=== PATIENT | female | born 1970 | race Caucasian/White ===

== ENCOUNTER 2017-05-27 06:25 | Emergency (ER) | payer OTHER ==
[~2017-05-27] VITALS: Ht 170.2 cm; Wt 143.3 kg
[~2017-05-27 06:25] MED LIST: CARB200T PO; LORA1TAB82 PO
--- NOTE | 2017-05-27 06:34 | NUR ---
PT REFUSED BP CHECK. RISK AND BENEFITS EXPLAINED X 3. PT STRONGLY REFUSED AND REMOVED BP CUFF.
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
--- NOTE | 2017-05-27 06:44 | NUR ---
DR. SANTOS AT BEDSIDE FOR EVAL.
[2017-05-27] MEDS ORDERED: LORAZEPAM 1 MG TABLET ONE (06:48)
--- NOTE | 2017-05-27 06:54 | NUR ---
LAB AT BEDSIDE FOR BLOOD DRAW
[2017-05-27] MEDS ORDERED: LORAZEPAM 1 MG TABLET PO ONE (07:00)
[2017-05-27 07:53] LABS: CALCIUM, SERUM 9.2 mg/dL (8.5-10.1); POTASSIUM 4.2 mmol/L (3.5-5.1)
[2017-05-27 08:12] VITALS: BP 126/70
== END 2017-05-27 08:15 | disposition home or self-care (01) ==
LOC: ER 06:26
DX: G40.409 Other generalized epilepsy and epileptic syndromes, not intractable, without status epilepticus (principal); F41.9 Anxiety disorder, unspecified; Z88.0 Allergy status to penicillin; Z98.84 Bariatric surgery status
CPT/HCPCS: 36415; 80048; 93005; 99285; A4606 ×2; Z7610 ×2

== ENCOUNTER 2017-05-28 20:30 | Emergency (ER) | payer OTHER ==
[~2017-05-28] VITALS: Ht 170.2 cm; Wt 95.3 kg
[2017-05-28 20:35] VITALS: BP 130/79
--- NOTE | 2017-05-28 21:08 | NUR ---
DR. YESENIA COWAN.
[2017-05-28] MEDS ORDERED: LEVETIRACETAM (500MG) 500 MG in IV NS 0.9% 100 ML IV SCH (22:00)
[2017-05-28] MEDS ORDERED: LEVETIRACETAM (500MG) 500 MG/5 ML VIAL IV ONE (22:04)
--- NOTE | 2017-05-28 22:11 | NUR ---
PT REFUSING SALIN LOCK AND REQUESTING TO SPEAK TO MAGY TAI.
[2017-05-28] MEDS ORDERED: LEVETIRACETAM (250 MG) 250 MG TABLET PO ONE ×2 (22:22→22:30)
== END 2017-05-28 22:33 | disposition home or self-care (01) ==
LOC: ER 20:32
DX: G40.909 Epilepsy, unspecified, not intractable, without status epilepticus (principal); F41.9 Anxiety disorder, unspecified; Z88.0 Allergy status to penicillin; Z98.84 Bariatric surgery status
CPT/HCPCS: 96365; 99284; A4606; J1953 ×2; J7030 ×2; Z7610

== ENCOUNTER 2017-12-14 16:27 | Emergency (ER) | payer OTHER ==
[~2017-12-14] VITALS: Ht 167.6 cm; Wt 131.5 kg
[~2017-12-14 16:27] MED LIST changes: +LORA-259 PO; -LORA1TAB82 PO
--- NOTE | 2017-12-14 16:30 | NUR ---
PATIENT REFUSED TO SIGN DISCHARGE PAPERS
--- NOTE | 2017-12-14 17:00 | NUR ---
MD STARR AT BEDSIDE.
== END 2017-12-14 17:10 | disposition home or self-care (01) ==
LOC: ER 16:31
DX: F19.239 Other psychoactive substance dependence with withdrawal, unspecified (principal); G40.909 Epilepsy, unspecified, not intractable, without status epilepticus; F41.9 Anxiety disorder, unspecified; Z88.0 Allergy status to penicillin; Z60.2 Problems related to living alone
CPT/HCPCS: Z7502; Z7610

== ENCOUNTER 2018-07-13 11:33 | Emergency (ER) | payer OTHER ==
[~2018-07-13] VITALS: Ht 167.6 cm; Wt 120.2 kg
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
[2018-07-13] MEDS ORDERED: OLANZAPINE 10 MG VIAL IM ONE ×2 (12:00→12:01)
--- NOTE | 2018-07-13 12:05 | NUR ---
IV LINE STARTED BLOOD DRAWN AND SENT TO LAB.
--- NOTE | 2018-07-13 12:06 | NUR ---
SKIN IS INTACT, CMS WNL
--- NOTE | 2018-07-13 12:13 | NUR ---
ERMD AT BEDSIDE FOR EVAL.
[2018-07-13 12:22] LABS: BASOPHILS # (AUTO) 0.1 /CMM (0.0-0.2); BASOPHILS % (AUTO) 0.7 % (0.0-2.0); EOSINOPHILS % (AUTO) 0.2 % (0.0-6.0); HEMATOCRIT 45 % (33-45); LYMPHOCYTES # (AUTO) 5.1 /CMM (0.8-4.8); LYMPHOCYTES % (AUTO) 30.5 % (20.0-44.0); MEAN CORPUSCULAR HGB CONC 32 g/dl (31.0-36.0); MEAN CORPUSCULAR VOLUME 94 fL (82-100); MONOCYTES % (AUTO) 5.9 % (2.0-12.0); NEUTROPHILS # (AUTO) 10.5 /CMM (1.8-8.9); NEUTROPHILS % (AUTO) 62.7 % (43.0-81.0); PLATELET COUNT (AUTO) 463 /CMM (150-450); RED BLOOD CELL COUNT(AUTO) 4.75 MIL/uL (4.0-5.2); WHITE BLOOD COUNT (AUTO) 16.7 K/uL (4.3-11.0)
--- NOTE | 2018-07-13 12:22 | NUR ---
SKIN IS INTACT, CMS WNL, PT CALM, STILL STATES "I AM GOING TO ". RESTRAINTS AT BILATERAL LOWER EXTREMITY REMOVED.
[2018-07-13 12:27] LABS: POTASSIUM 3.2 mmol/L (3.5-5.1)
[2018-07-13] MEDS ORDERED: IV NS 0.9% 1,000 ML BAG IV ONE ×2 (12:30→13:00)
[2018-07-13 12:33] LABS: ALBUMIN 3.9 g/dL (3.4-5.0); ALCOHOL, BLOOD < 3 mg/dL (0-0); ALKALINE PHOSPHATASE 97 U/L (46-116); ASPARTATE AMINOTRANSFERASE 24 U/L (15-37); BILIRUBIN,DIRECT 0.1 mg/dL (0.0-0.2); BILIRUBIN,TOTAL 0.6 mg/dL (0.2-1.0); CALCIUM, SERUM 9.1 mg/dL (8.5-10.1); CHLORIDE 99 mmol/L (98-107); CREATININE 1.7 mg/dL (0.6-1.3); GLUCOSE 296 mg/dL (74-106); SALICYLATE 5.4 mg/dL (2.8-20.0); SODIUM SERUM 138 mmol/L (136-145); UREA NITROGEN, BLOOD 16 mg/dL (7-18)
[2018-07-13 12:34] LABS: ACETAMINOPHEN 0 ug/ml (10-30); CARBON DIOXIDE 10 mmol/L (21-32)
--- NOTE | 2018-07-13 12:39 | NUR ---
SKIN IS INTACT, CMS WNL, PT CALM AND COOPERATIVE. R ARM RESTRAINT REMOVED.
[2018-07-13 12:40] LABS: ALANINE AMINOTRANSFERASE 39 U/L (12-78)
--- NOTE | 2018-07-13 12:43 | NUR ---
RADIOLOGY AT BEDSIDE FOR CHEST XRAY.
[2018-07-13 12:59] LABS: BILIRUBIN,URINE Negative (NEGATIVE); BLOOD, URINE Moderate Ery/uL (NEGATIVE); COLOR,URINE Yellow (YELLOW); KETONES,URINE Negative (NEGATIVE); LEUKOCYTE ESTERASE ,URINE Negative (NEGATIVE); NITRITE, URINE Negative (NEGATIVE); PH,URINE 5.5 (5.0-8.0); PROTEIN,URINE >=300 mg/dl (NEGATIVE); UGLUCOSE 500 MG/DL mg/dL (NEGATIVE); UROBILINOGEN,URINE 0.2 EU/dL (0.2)
[2018-07-13 13:04] LABS: BACTERIA,URINE Few /HPF (None Seen); SQUAMOUS EPITHELIAL CELL,UR Few /HPF (None Seen); URINE AMORPHOUS URATE Rare /HPF (None Seen)
[2018-07-13 13:15] LABS: ABG BASE EXCESS -4.1 mmol/L; ABG OXYGEN SATURATION 96.2 % (92.0-98.5); ABG PCO2 24.4 mmHg (35.0-45.0); ABG PH 7.477 (7.350-7.450); ABG PO2 84.3 mmHg (75.0-100.0); AaDO2 36.2 mmHg; COHb 0.9 % (0.5-1.5); MetHb 0.5 % (0.0-1.5); O2Hb 94.9 % (94.0-97.0); SITE, ABG Right Radial; VENT MODE, BG room air
[2018-07-13] MEDS ORDERED: POTASSIUM CHLORIDE 20 MEQ TAB.PRT.SR PO ONE ×2 (13:34→14:00)
--- NOTE | 2018-07-13 13:45 | NUR ---
PT IS CALM, VERBALLY RESPONSIVE. STABLE VITALS. WILL CONTINUE TO MONITOR.
[2018-07-13 13:56] LABS: CALCIUM, SERUM 8.7 mg/dL (8.5-10.1); CREATININE 1.2 mg/dL (0.6-1.3); POTASSIUM 3.5 mmol/L (3.5-5.1)
--- NOTE | 2018-07-13 14:15 | NUR ---
PT TO RADIOLOGY FOR HEAD [facility].
--- NOTE | 2018-07-13 14:20 | NUR ---
OUT FOR CT
[2018-07-13] MEDS ORDERED: LEVE500T9 PO (14:21)
--- NOTE | 2018-07-13 15:10 | NUR ---
PATIENT CALM AND COOPERATIVE. WILL CONTINUE TO MONITOR
--- NOTE | 2018-07-13 16:30 | NUR ---
PT RESTING COMFORTABLY IN BED
--- NOTE | 2018-07-13 17:30 | NUR ---
PT RESTING COMFORTABLY IN BED, CALM AND COOPERATIVE
--- NOTE | 2018-07-13 19:13 | NUR ---
Received pt from [facility]. Pt resting in bed, calm and in no apparent distress at this time. Will continue to monitor.
--- NOTE | 2018-07-13 19:13 | NUR ---
REPORT GIVEN TO SALONI MOBLEY FOR MAX
--- NOTE | 2018-07-13 20:30 | NUR ---
Pt sleeping comfortably, arousable; no new complaint. Kept warm.
--- NOTE | 2018-07-13 20:45 | NUR ---
Pt seen by Crisis Team for psych eval. Pt is cooperative.
--- NOTE | 2018-07-13 21:15 | NUR ---
Nolasco Catheter removed per patient's request.
--- NOTE | 2018-07-13 22:20 | NUR ---
Pt cleared for DC Home.IV removed. Catheter intact and site benign. Pressure and 4x4 applied to site. No bleeding noted. Assisted pt to waiting area for her ride to pick her up. ambulatory with a steady gait
[2018-07-13 22:23] VITALS: BP 111/65
== END 2018-07-13 22:28 | disposition home or self-care (01) ==
LOC: ER 11:35
DX: R45.1 Restlessness and agitation (principal); R06.00 Dyspnea, unspecified; S80.211A Abrasion, right knee, initial encounter; G40.909 Epilepsy, unspecified, not intractable, without status epilepticus; F41.9 Anxiety disorder, unspecified; Z88.0 Allergy status to penicillin; Z60.2 Problems related to living alone; Z79.899 Other long term (current) drug therapy; X58.XXXA Exposure to other specified factors, initial encounter; Y93.89 Activity, other specified; Y92.89 Other specified places as the place of occurrence of the external cause; Y99.8 Other external cause status
CPT/HCPCS: 36415; 36600; 70450-TC; 71045-TC; 80048-TC; 80076-TC; 80305; 81000-TC; 83880; 84702-TC; 84703-TC; 85025-TC; G0480; J3490; J7030

== ENCOUNTER 2018-07-14 22:02 | Emergency (ER) | payer OTHER ==
[~2018-07-14 22:02] MED LIST changes: +LEVE500T9 PO
--- NOTE | 2018-07-14 23:08 | NUR ---
CALLED PT'S NAME THREE TIMES, NO RESPONSE. PT LEFT WITHOUT BEING TRIAGED
== END 2018-07-14 23:09 | disposition left against medical advice (07) ==
LOC: ER 22:05
DX: Z53.21 Procedure and treatment not carried out due to patient leaving prior to being seen by health care provider (principal)

== ENCOUNTER 2019-03-19 23:59 | Emergency (ER) | payer OTHER ==
[~2019-03-19] VITALS: Ht 170.2 cm; Wt 113.4 kg
[~2019-03-19 23:59] MED LIST changes: -CARB200T PO
--- NOTE | 2019-03-20 00:10 | NUR ---
TO BED 4 BIB EMS C/O ANXIETY. DENIES SI/HI. PT AAOX4 NO ACUTE DISTRESS NOTED, RESP EVEN AND UNLABORED. PENDING ER MD MARTINEZ.
--- NOTE | 2019-03-20 01:07 | NUR ---
MAGY TAI AT BEDSIDE TO [facility] GIL[facility]ERT.
[2019-03-20] MEDS ORDERED: LORAZEPAM 1 MG TABLET ONE (01:16)
--- NOTE | 2019-03-20 01:22 | NUR ---
Patient discharged to home in stable condition. Written and verbal after care instructions given. Patient verbalizes understanding of instruction. ambulatory with a steady gait noted. advice pt not to drive or operate any machinery due to pt was given ativan. pt verbalize understanding.
[2019-03-20 01:23] VITALS: BP 134/86
[2019-03-20] MEDS ORDERED: LORAZEPAM 1 MG TABLET PO ONE (01:30)
== END 2019-03-20 01:25 | disposition home or self-care (01) ==
LOC: ER 03-20
DX: F41.0 Panic disorder [episodic paroxysmal anxiety] (principal); G40.909 Epilepsy, unspecified, not intractable, without status epilepticus; Z88.0 Allergy status to penicillin; Z60.2 Problems related to living alone; Z79.899 Other long term (current) drug therapy

== ENCOUNTER 2019-08-11 12:47 | Emergency (ER) | payer OTHER ==
[~2019-08-11] VITALS: Ht 170.2 cm; Wt 115.7 kg
--- NOTE | 2019-08-11 12:50 | NUR ---
BIB RA 878 FROM HOME,HIGH ANXIETY AND TRYING TO INDUCE VOMITING THINKING IT WOULD REMOVE THE KEPPRA SHE TOOK LAST NIGHT AND THIS MORNING. PATIENT A/OX4, ANXIOUS AND FOUND PATIENT TRYING TO FORCE HERSELF TO VOMIT BY PUTTING A PEN DOWN HER THROAT. INSTRUCTED PATIENT TO STOP AND TO SIT AT THE BED FOR SAFETY. PATIENT IS NON-COMPLIANT.
[2019-08-11] MEDS ORDERED: LORAZEPAM INJ 2 MG/ML VIAL ONE (12:57)
[2019-08-11] MEDS ORDERED: HALOPERIDOL LACTATE INJ 5 MG/ML VIAL ONE (12:57)
[2019-08-11] MEDS ORDERED: LORAZEPAM INJ 2 MG/ML VIAL IM ONE (13:00)
[2019-08-11] MEDS ORDERED: HALOPERIDOL LACTATE INJ 5 MG/ML VIAL IM ONE (13:00)
--- NOTE | 2019-08-11 13:32 | NUR ---
patient awake, alert and oriented x4, ambulatory with steady gait, dog at bedside, wants to go home, informed dr. morris.
[2019-08-11 13:37] VITALS: BP 124/69
--- NOTE | 2019-08-11 13:37 | NUR ---
Patient discharged to home in stable condition. Written and verbal after care instructions given. Patient verbalizes understanding of instruction. Instructed not to drive.
== END 2019-08-11 13:38 | disposition home or self-care (01) ==
LOC: ER 12:48
DX: T42.6X1A Poisoning by other antiepileptic and sedative-hypnotic drugs, accidental (unintentional), initial encounter (principal); F41.0 Panic disorder [episodic paroxysmal anxiety]; G40.909 Epilepsy, unspecified, not intractable, without status epilepticus; F12.10 Cannabis abuse, uncomplicated; R45.1 Restlessness and agitation; Z88.0 Allergy status to penicillin; Z60.2 Problems related to living alone; Z79.899 Other long term (current) drug therapy; Y92.89 Other specified places as the place of occurrence of the external cause
CPT/HCPCS: 96372 ×2; 99284; J1630; J2060

== ENCOUNTER 2019-10-18 08:58 | Emergency (ER) | payer OTHER ==
[~2019-10-18] VITALS: Ht 167.6 cm; Wt 127.5 kg
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
[2019-10-18] MEDS ORDERED: LEVETIRACETAM (250 MG) 250 MG TABLET PO ONE ×2 (09:19→09:30)
--- NOTE | 2019-10-18 09:25 | NUR ---
egg sorter at bedside.
[2019-10-18 09:32] LABS: BASOPHILS # (AUTO) 0.1 /CMM (0.0-0.2); BASOPHILS % (AUTO) 0.5 % (0.0-2.0); EOSINOPHILS % (AUTO) 0.5 % (0.0-6.0); HEMATOCRIT 42 % (33-45); LYMPHOCYTES # (AUTO) 1.1 /CMM (0.8-4.8); LYMPHOCYTES % (AUTO) 9.6 % (20.0-44.0); MEAN CORPUSCULAR HGB CONC 33 g/dl (31.0-36.0); MEAN CORPUSCULAR VOLUME 88 fL (82-100); MONOCYTES # (AUTO) 0.4 /CMM (0.1-1.30); MONOCYTES % (AUTO) 3.7 % (2.0-12.0); NEUTROPHILS # (AUTO) 9.5 /CMM (1.8-8.9); NEUTROPHILS % (AUTO) 85.7 % (43.0-81.0); PLATELET COUNT (AUTO) 389 /CMM (150-450); RED BLOOD CELL COUNT(AUTO) 4.76 MIL/uL (4.0-5.2); WHITE BLOOD COUNT (AUTO) 11.1 K/uL (4.3-11.0)
[2019-10-18 09:39] LABS: CALCIUM, SERUM 8.9 mg/dL (8.5-10.1); CARBON DIOXIDE 29 mmol/L (21-32); CHLORIDE 104 mmol/L (98-107); GLUCOSE 100 mg/dL (74-106); SODIUM SERUM 139 mmol/L (136-145); UREA NITROGEN, BLOOD 16 mg/dL (7-18)
[2019-10-18 09:44] LABS: ALANINE AMINOTRANSFERASE 21 U/L (12-78); ALBUMIN 3.4 g/dL (3.4-5.0); ALKALINE PHOSPHATASE 90 U/L (46-116); ASPARTATE AMINOTRANSFERASE 14 U/L (15-37); BILIRUBIN,DIRECT 0.1 mg/dL (0.0-0.2); BILIRUBIN,TOTAL 0.3 mg/dL (0.2-1.0); TOTAL PROTEIN, SERUM 7.2 g/dL (6.4-8.2)
[2019-10-18 09:45] LABS: ALCOHOL, BLOOD < 3 mg/dL (0-0)
[2019-10-18 09:54] LABS: APPEARANCE,URINE Clear (CLEAR); BILIRUBIN,URINE Negative (NEGATIVE); BLOOD, URINE Large Ery/uL (NEGATIVE); COLOR,URINE Yellow (YELLOW); KETONES,URINE Negative (NEGATIVE); LEUKOCYTE ESTERASE ,URINE Small (NEGATIVE); NITRITE, URINE Negative (NEGATIVE); PROTEIN,URINE 30 mg/dl (NEGATIVE); UGLUCOSE Negative (NEGATIVE); UROBILINOGEN,URINE 0.2 EU/dL (0.2)
[2019-10-18 09:55] LABS: BACTERIA,URINE Few /HPF (None Seen); RBC,URINE 21-50 /HPF (0-2); SQUAMOUS EPITHELIAL CELL,UR Few /HPF (None Seen)
--- NOTE | 2019-10-18 10:16 | NUR ---
AMBULATORY WITH STEADY GAIT. NO DISTRESS NOTED. Patient discharged to home in stable condition. Written and verbal after care instructions given. Patient verbalizes understanding of instruction.
[2019-10-18 10:17] VITALS: BP 128/72
== END 2019-10-18 10:20 | disposition home or self-care (01) ==
LOC: ER 09:01
DX: G40.909 Epilepsy, unspecified, not intractable, without status epilepticus (principal); Z88.0 Allergy status to penicillin; Z60.2 Problems related to living alone; Z79.899 Other long term (current) drug therapy
CPT/HCPCS: 36415; 80048-TC; 80076-TC; 80305; 81000-TC; 85025-TC; 87086-TC; G0480

== ENCOUNTER 2021-05-07 23:27 | Emergency (ER) | payer OTHER ==
[~2021-05-07] VITALS: Ht 170.2 cm; Wt 108.9 kg
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
[2021-05-07] MEDS ORDERED: LEVETIRACETAM (500MG) 500 MG/5 ML VIAL IV ONE (23:58)
[2021-05-07] MEDS ORDERED: LORAZEPAM INJ 2 MG/ML VIAL ONE (23:59)
[2021-05-08] MEDS ORDERED: LORAZEPAM INJ 2 MG/ML VIAL IVP ONE
[2021-05-08] MEDS ORDERED: LEVETIRACETAM (500MG) 500 MG in IV NS 0.9% 100 ML IV ONE
--- NOTE | 2021-05-08 00:01 | NUR ---
RESTING COMFORTABLY. VSS.
[2021-05-08 00:06] LABS: BASOPHILS # (AUTO) 0.1 K/uL (0.0-0.2); BASOPHILS % (AUTO) 0.5 % (0.0-2.0); HEMATOCRIT 41 % (33-45); HEMOGLOBIN 13.7 g/dL (11.5-14.8); LYMPHOCYTES # (AUTO) 2.4 K/uL (0.8-4.8); LYMPHOCYTES % (AUTO) 22.6 % (20.0-44.0); MEAN CORPUSCULAR HGB CONC 33 g/dl (31.0-36.0); MEAN CORPUSCULAR VOLUME 90 fL (82-100); MONOCYTES # (AUTO) 0.5 K/uL (0.1-1.30); NEUTROPHILS # (AUTO) 7.5 K/uL (1.8-8.9); NEUTROPHILS % (AUTO) 69.9 % (43.0-81.0); PLATELET COUNT (AUTO) 373 K/uL (150-450); RED BLOOD CELL COUNT(AUTO) 4.61 MIL/uL (4.0-5.2); WHITE BLOOD COUNT (AUTO) 10.8 K/uL (4.3-11.0)
[2021-05-08 00:22] LABS: CALCIUM, SERUM 9.2 mg/dL (8.5-10.1); CARBON DIOXIDE 23 mmol/L (21-32); CHLORIDE 107 mmol/L (98-107); CREATININE 1.1 mg/dL (0.6-1.3); GLUCOSE 117 mg/dL (74-106); POTASSIUM 3.8 mmol/L (3.5-5.1); SODIUM SERUM 143 mmol/L (136-145); UREA NITROGEN, BLOOD 11 mg/dL (7-18)
[2021-05-08 00:32] LABS: ALANINE AMINOTRANSFERASE 23 U/L (12-78); ALBUMIN 3.8 g/dL (3.4-5.0); ALCOHOL, BLOOD < 3 mg/dL (0-0); ALKALINE PHOSPHATASE 97 U/L (46-116); ASPARTATE AMINOTRANSFERASE 15 U/L (15-37); BILIRUBIN,DIRECT 0.1 mg/dL (0.0-0.2); BILIRUBIN,TOTAL 0.2 mg/dL (0.2-1.0); TOTAL PROTEIN, SERUM 7.5 g/dL (6.4-8.2)
[2021-05-08] MEDS ORDERED: HYDR-4209 PO (01:18)
--- NOTE | 2021-05-08 01:25 | NUR ---
Patient discharged to home in stable condition. Written and verbal after care instructions given. Patient verbalizes understanding of instruction. Pt ambulated out of ED. VSS.
--- NOTE | 2021-05-08 01:25 | NUR ---
IV removed. Catheter intact and site benign. Pressure and 4x4 applied to site. No bleeding noted.
--- NOTE | 2021-05-08 01:45 | NUR ---
DIONE SPEAKING TO THE PT IN THE WAITING ROOM
[2021-05-08 01:48] VITALS: BP 137/69
== END 2021-05-08 01:48 | disposition home or self-care (01) ==
LOC: ER 23:34
DX: S62.646A Nondisplaced fracture of proximal phalanx of right little finger, initial encounter for closed fracture (principal); G40.909 Epilepsy, unspecified, not intractable, without status epilepticus; M79.674 Pain in right toe(s); F41.9 Anxiety disorder, unspecified; Z98.890 Other specified postprocedural states; Z88.0 Allergy status to penicillin; Z79.899 Other long term (current) drug therapy; V49.69XA Unspecified car occupant injured in collision with other motor vehicles in traffic accident, initial encounter; Y93.89 Activity, other specified; Y92.413 State road as the place of occurrence of the external cause; Y99.8 Other external cause status
CPT/HCPCS: 29130; 36415; 73130; 73660; 80048; 80076; 80320; 85025; 85730; 93005; 96374; 99285; J1953 ×2; J2060; J7030; G0480